=== PATIENT | female | born 1965 | race Hispanic/Latino ===

== ENCOUNTER 2016-08-07 11:24 | Day surgery (SDC) | payer OTHER ==
[~2016-08-07] VITALS: Ht 160 cm; Wt 101.0 kg
[~2016-08-07 11:24] MED LIST: ASPI1TAB22 PO; ATOR40TA69 PO; CHOL100045 PO; HYDR25TA4 PO; IMI25 PO; LOSA50TA37 PO; Lactated Ringer's 1,000 ML IV ONE; METF500T4 PO; Sodium Chloride LOK Flush 10 mL Syringe IV PRN; fentaNYL-PF 50 mCg/mL 2 mL Inj IVPUSH PRN
[2016-08-07 12:21] VITALS: BP 140/78; PULSE 69; RESP 14; O2SAT 100
[2016-08-07] MEDS ORDERED: ASPI-973 PO (12:28)
[2016-08-07] MEDS: 0.9% Sodium Chloride 1,000 ML IV SCH ×2 (13:22→13:31)
--- NOTE | 2016-08-07 13:34 | PCM.ENDCOL ---
Colonoscopy Date of Service: August 07, 2016 Physician Spenser Gandhi MD Pre Procedure Diagnosis: Screening Post Procedure Dx & Findings: Polyp hemorrhoids diverticuli Procedure Colonoscopy PROCEDURE IN DETAIL: Prep adequate Withdrawal time 9 minutes After unremarkable rectal examination the Olympus video colonoscope was inserted patient's anal canal and was advanced to cecum. Landmarks were identified including the ileocecal valve and appendiceal orifice. Scope was withdrawn systematically. Visualized colonic mucosa showed healthy shiny mucosa with normal healthy-appearing vasculature. In the rectosigmoid area, there were 2 polyps. One of them was 4 mm in size which was removed completely using cold snare. The other one was 1 mm in size which was removed completely using cold forceps. In the sigmoid colon and up to the descending colon there a few small diverticuli. In the rectum retroflexion was done which showed hemorrhoids. Anal canal was inspected carefully on the way out and hemorrhoids noted. Impression Polyps 2 status post complete removal Diverticula Hemorrhoids Recommendation Repeat colonoscopy in 5 years Diverticula diet Presedation Assessment Risks and Benefits Informed consent was obtained from the patient after all risks and benefits including but not limited to drug reaction, infection, pain, bleeding, perforation, as well as alternatives were discussed. Patient monitoring Continuous pulse oximetry, cardiac monitoring, blood pressure monitoring, IV access, and oxygen at 2L per nasal cannula. Periprocedural Fentanyl: Fentanyl 75mcg Incrementally Midazolam: Midazolam 3mg Incrementally Complications There were no periprocedural complications identified. Post Procedure Plan Post Procedure Recommendations 1. Restrict activities today. 2. Resume normal activities in the morning. 3. Resume medications. 4. Patient informed of normal post procedure side effects as bloating, drowsiness, blood streaking in the stool. 5. average risk CRCS. If colon polyps come back as: -Hyperplastic- can repeat colonoscopy in 10 years -Tubular adenoma- repeat colonoscopy in 5 years -Tubulovillous/villous adenoma- repeat colonoscopy in 3 years -If any dysplasia- return to clinic as soon as possible 6. Please don't hesitate to call me with any questions. Spenser Gandhi MD August 07, 2016 13:34
[2016-08-07 13:38] VITALS: BP 124/58; PULSE 68; RESP 14; O2SAT 100
[2016-08-07 13:51] VITALS: BP 119/59; PULSE 55; RESP 14; O2SAT 92
--- NOTE | 2016-08-10 17:56 | PATH ---
SURGICAL PATHOLOGY Attending Physician:Spenser Gandhi M.D. CASE STATUS: Signed Out PATIENT NAME: SHABNAM OROPEZA PID: [id number] : 1965 DATE COLLECTED:08/07/2016 00:00 SPECIMEN: Colon, Biopsy CLINICAL HISTORY: COLON POLYP 1. RECTAL SIGMOID COLON POLYP FINAL DIAGNOSIS: Rectosigmoid Colon, Polyp, Biopsy: Portion of tubular adenoma x1; negative for high-grade dysplasia. Portion of colorectal mucosa x1 with no significant histomorphologic abnormality. ICD 10: K63.5 GROSS DESCRIPTION: The specimen is received in one formalin filled container labeled with the patient's name, sublabeled "rectal-sigmoid colon polyp" and consists of 2 portions of tissue which aggregate to 1.1 x 0.4 x 0.4 CM. The specimen is entirely submitted in one cassette. 08/08/2016 [facility] ICD-9 CODES: CPT CODES: 1: 18000 Electronically Signed Out Eloise Xiong MD [facility] Pathology [facility] [address], [place] [address] Technical component performed at [facility], [facility] [address], [place], [address]
[2016-09-05] MEDS ORDERED: [UNRECOGNIZED DRUG - OTHER] TP (15:05)
[2016-09-05] MEDS ORDERED: ASPI-1148 PO (15:05)
[2016-09-05] MEDS ORDERED: AMIT10TA6 PO (15:05)
== END 2016-08-07 23:59 | disposition home or self-care (01) ==
LOC: END 11:24
PROVIDERS: ATTEND Internal Medicine
DX: Z12.11 Encounter for screening for malignant neoplasm of colon (principal); D12.7 Benign neoplasm of rectosigmoid junction; K57.30 Diverticulosis of large intestine without perforation or abscess without bleeding; K64.8 Other hemorrhoids; E11.9 Type 2 diabetes mellitus without complications; Z79.82 Long term (current) use of aspirin; Z79.899 Other long term (current) drug therapy

== ENCOUNTER 2016-09-06 10:34 | Day surgery (SDC) | payer OTHER ==
[2016-09-06] VITALS (10 sets, daily range): BP systolic 114–166; BP diastolic 58–94; PULSE 49–74; RESP 14–22; O2SAT 96–99
[~2016-09-06] VITALS: Ht 160 cm; Wt 99.3 kg
--- NOTE | 2016-09-06 07:56 | PCM.HPANE ---
Patient Data Surgeon Admitting Provider: Attending Provider:David Yates MD Primary Care Physician:Kassi Peguero MD Other Provider:Nikita Pepe Anesthesia Reason for Visit Left Buttock Lipoma Ht/WT & BMI Height (Feet): 5 Height (Inches): 3 Weight (Kilograms): 99.34 Body Mass Index 38.00 Allergies Coded Allergies: lisinopril (Verified Adverse Reaction, Severe, COUGH, 09/05/16) topiramate (Verified Adverse Reaction, Severe, PARESTHESIAS HANDS & FEET, 09/05/16) Past Anesthesia History Anesthesia History: Denies:: Abnormal Airway, Anesthesia Reactions, Difficult Intubation, Fam Anesthesia Reaction, Fam Malignant Hypertherm, Malignant Hyperthermia Diabetes History Hx Diabetes?: Yes Type of Diabetes: Type II Glycemic Control: Oral Medication Current Bedside Blood Glucose: 93 MRSA MRSA: No Medications Blood Thinner: Aspirin Hypertension Medication: Yes (HCTZ,LOSARTAN) Home Meds Incl Beta Ta: No Reported Medications [Gentamycin Eye Drops] No Conflict Check1-2 Gtts TP BID TO FINGERNAIL 09/05/16 Aspirin/Acetaminophen/Caffeine (Lwiowjr-Xsdqahezdxvom-Spsq Tab)250 Mg-250 Mg-65 Mg Tablet1 Each PO PRN 09/05/16 Amitriptyline 10 Mg Cphedi68 Mg PO HS Ref 0 09/05/16 Aspirin 81 Mg Jffbna49 Mg PO DAILY Ref 0 08/07/16 Cholecalciferol (Vitamin D3) (Vitamin D)1,000 Unit Capsule1,000 Unit PO DAILY # 1 BOTTLE Ref 0 08/06/16 Sumatriptan (Imitrex)25 Mg Oihiji31 Mg PO PRN 08/06/16 Metformin 500 Mg Adfjgg119 Mg PO BIDWM 30 Days Ref 0 08/04/14 Losartan Potassium 50 Mg Pnkvty28 Mg PO BID 08/04/14 Atorvastatin Calcium 40 Mg Cmzohz39 Mg PO DAILY #30 TABLET Ref 0 08/04/14 Hydrochlorothiazide 25 Mg Bxvxor87 Mg PO DAILY 30 Days Ref 0 08/04/14 Discontinued Reported Medications Aspirin/Acetaminophen/Caffeine (Excedrin Migraine Caplet)1 Each Tablet1 Each PO DIRECTED PRN For Headache 08/04/14 History History of ENT Problems?: No HEENT History: Denies:: Abnormal Airway Difficult Intubation Dysphagia Hearing Problem Denture Type: None Teeth Condition: Within Normal Limits Hx of Heart Problems?: Yes Cardiovascular History: Positive for:: Chest Pain (2011,2002 ??ETIOLOGY 2012 MPS WNL) Hypertension (HYPERLIPIDEMIA) Denies:: AICD Atrial Fibrillation Congestive Heart Failure Heart Murmur Pacemaker Valvular Heart Disease Hx of Respiratory Problem?: No Respiratory History: Denies:: Tuberculosis Use of C-PAP Machine Hx Neurologic Problems?: Yes Neurological History: Positive for:: Headaches Denies:: CVA Dementia Hx of GI Problems?: Yes Hx of Problems?: Yes Genitourinary History: Positive for:: Kidney Stones (HX OF KIDNEY STONES) Denies:: Urinary Tract Infection (C/OF INTERMITTANT DYSURIA) Female Hx: Positive for:: Problems with Breasts? (S/P RT PARTIAL MASTECTOMY ( CYST)) Denies:: Currently (S/P C/S X2) Skin History: Denies:: History Skin Disorders? Pressure Ulcers Hx Musculoskeletal Problems?: Yes Musculoskeletal History: Positive for:: Musculoskeletal Trauma (S/P ORIF LT WRIST HX FX FINGER) Denies:: Joint Replacement Psycho Social History: Positive for:: Anxiety (SITUATIONAL) Denies:: Hx Depression Hx Surgeries?: Yes (2 C-sections, lumpectomy of R breast, ORIF L wrist) Hx Any Other Health Problems?: Yes Other History: Denies:: Cancer Endocrine Disease Hospitalization Thyroid Disease Hx Diabetes: Yes Hx Alcohol Use: NoHx Substance Use: No Smoking Status: Never Smoker Have You Smoked inLast 12 mo: No Stop/Bang S-Snoring: Do You Snore Loudly: No T-Tired: feel tired, fatigued: No O-Obsered: Observed not breath: No P-Blood Pressure: treated: Yes B- Body Mass Index > 35 kg/m2: Yes A- Age over 50: Yes N- Neck Large Circumference: No G- Gender Male: Yes MAHNAZ Total Score: 4 MAHNAZ Risk Assessment: High Risk, =/>3 Yes MAHNAZ Category 4 OutPt Procedure: Yes Risk Assessment Category Category 1A: Patient has history of documented sleep apnea, and HAS NOT received any narcotic, sedative or anesthesia administration during this stay. Category 1B: Patient has history of documented sleep apnea, and HAS received any narcotic , sedative or anesthesia administration during this stay Category 2: Patient has SUSPECTED Obstructive Sleep Apnea, and HAS received any narcotic , sedative or anesthesia administration during this stay. Category 3: Patient has SUSPECTED Obstructive Sleep Apnea and HAS NOT received narcotic, sedative or anesthesia administration during this stay. Category 4: Outpatient in Procedural Areas with known sleep apnea or who screen positive for High Risk via the STOP/BANG questionnaire. Exam Exam General Appearance: Alert, Oriented X3, Cooperative, No Acute Distress HEENT/AIRWAY: MP 2 Lungs: Clear to Auscultation, Normal Air Movement Heart: Exam Unremarkable, Regular Rate/Rhythm, No Murmurs/Rubs/Gallops Plan Impression Patient chart reviewed, patient interviewed and anesthestic plan with risks, benefits, and alternatives discussed, and informed consent obtained. ASA Physical Status: ASA3 Severe Disease (morbid obesity) Anesthetic Plan: MAC Bene/Risks/Altern/Consents: Yes HP Complete Prior to Induction: Yes Jose Marr MD Sep 06, 2016 07:56
[~2016-09-06 10:34] MED LIST changes: +AMIT10TA6 PO; +ASPI-1148 PO; +ASPI-973 PO; -ASPI1TAB22 PO; +CeFAZolin Inj 2,000 MG in Dextrose 5%-Pha MIX 50 ML IV SCH; -Lactated Ringer's 1,000 ML IV ONE; +Lactated Ringer's 1,000 ML IV SCH; -Sodium Chloride LOK Flush 10 mL Syringe IV PRN; +[UNRECOGNIZED DRUG - OTHER] TP; -fentaNYL-PF 50 mCg/mL 2 mL Inj IVPUSH PRN
[2016-09-06] MEDS ORDERED: Dexamethasone 4 mg/mL Inj ONE (10:35)
[2016-09-06] MEDS ORDERED: fentaNYL-PF 50 mCg/mL 2 mL Inj ONE (10:35)
[2016-09-06] MEDS ORDERED: Ketamine 10 mg/mL 20 mL Inj ONE (10:35)
[2016-09-06] MEDS ORDERED: Ondansetron 2 mg/mL 2 mL Inj ONE ×2 (10:35→14:25)
[2016-09-06] MEDS ORDERED: Propofol 10,000 mCg/mL 20 mL Inj ONE (10:35)
[2016-09-06] MEDS ORDERED: Lactated Ringer's 1,000 ML IV ONE (11:34)
[2016-09-06] MEDS ORDERED: Bupivacaine-MPF 0.25% 30 mL Inj INFILTRATE ONE (13:43)
[2016-09-06] MEDS ORDERED: MetoCLOpramide 5 mg/mL 2 mL Inj ONE (14:25)
[2016-09-06] MEDS ORDERED: Lactated Ringer's 500 ML IV PRN (14:32)
[2016-09-06] MEDS ORDERED: Lactated Ringer's 1,000 ML IV SCH (14:32)
[2016-09-06] MEDS ORDERED: HYDROcodone-APAP 5-325 mg Tablet PO PRN (14:35)
[2016-09-06] MEDS ORDERED: Dexamethasone 4 mg/mL Inj IVPUSH PRN (14:35)
[2016-09-06] MEDS ORDERED: MetoCLOpramide 5 mg/mL 2 mL Inj IVPUSH PRN (14:35)
[2016-09-06] MEDS ORDERED: EPHEDrine Sulfate 50 mg/mL Inj IVPUSH PRN (14:35)
[2016-09-06] MEDS ORDERED: Phenylephrine 10,000 mCg/mL Inj IVPUSH PRN (14:35)
[2016-09-06] MEDS ORDERED: Ondansetron 2 mg/mL 2 mL Inj IVPUSH PRN (14:35)
[2016-09-06] MEDS ORDERED: HYDROmorphone 1 mg/mL Inj IVPUSH PRN (14:35)
[2016-09-06] MEDS ORDERED: fentaNYL-PF 50 mCg/mL 2 mL Inj IVPUSH PRN (14:35)
--- NOTE | 2016-09-06 15:13 | PCM.ANEP1 ---
Post Anesthesia PACU Phase 1 Assessment Vital Signs Vital Signs Date Time Temp Pulse Resp B/P Pulse Ox O2 Delivery O2 Flow Rate FiO2 09/06/16 15:08 52 18 127/62 96 Room Air 09/06/16 15:00 36.6 52 19 127/67 97 Room Air 09/06/16 14:45 36.1 60 17 117/94 98 Room Air 09/06/16 14:40 52 22 136/58 99 Simple Mask 8 09/06/16 14:35 49 22 139/70 99 Simple Mask 8 09/06/16 14:30 54 22 157/71 99 Simple Mask 8 09/06/16 14:27 36.3 166/77 09/06/16 11:30 36.6 74 14 140/84 97 Room Air Anesthetic Administered: GA Level of Alertness: Sleepy, easy to arouse TOBIAS's with Equal Strength: Yes Pain: No Nausea or Vomiting: No CV Function & Hydration Stable: Yes Airway Device: Oralpharangeal Airway Oxygen Delivery: Simple Mask Lungs: Clear to Auscultation, Normal Air Movement Dermatome Level: Full Sensation PACU Phase 2 Assessment Complications: No Follow up Care: No Patient Instructions Provided: N/A Jose Marr MD Sep 06, 2016 15:13
--- NOTE | 2016-09-07 01:52 | OP ---
[address] [address] OPERATIVE REPORT PATIENT: SHABNAM OROPEZA : 1965 MR#: [id number] ADMIT: 09/06/2016 JOB ID: [id number] DATE OF SURGERY: 09/06/2016 ANESTHESIA: General. PREOPERATIVE DIAGNOSIS(ES): Symptomatic left buttock mass. POSTOPERATIVE DIAGNOSIS(ES): Left buttock lipoma. OPERATION: Excision of left buttock lipoma, measuring approximately 8 x 20 x 5 cm. SURGEON: David Yates MD CASINO CONTROLLER: Blade Allen PA-C. The machine assistant was required for the safety and timely completion of the case. COMPLICATIONS: None. ESTIMATED BLOOD LOSS: 10 mL. CONDITION: Satisfactory. SPECIMEN: Left buttock lipoma. FINDINGS: There was a large lipoma that was very lobulated and kind of interdigitating into the surrounding fatty tissue. At times, the plane between the lipoma and the buttock fat was quite indistinct. INDICATIONS/SIGNIFICANT HISTORY: The patient is a 50-year-old female who, two months ago, noted a lump in her left buttock. She believes it had grown in size. She brought this to the attention of her PCP, who referred her to me. It was an obvious lipoma. She wanted it removed. Given her size, I elected to do this in the operating room. OPERATIVE TECHNIQUE: The patient was taken to the operating room and placed in the supine position. General anesthesia was administered. She was then placed in the prone position. The buttocks were prepped and draped in the standard surgical fashion. A procedural pause was performed. Preoperative antibiotics were given. A transverse incision was made on the left buttock over the lipomatous mass and dissection carried down through the skin. The lipoma was adhesive to the undersurface of the skin. It was very lobulated. I used electrocautery to dissect this off the skin. The surrounding planes were quite indistinct and I used electrocautery to kind of free it up. Eventually, this was completely excised. There was a large defect. Therefore, I placed a 10-Thai ROGE drain, bringing it out laterally. The skin was closed with 2-0 Vicryl deep dermis, followed by running 4-0 Monocryl. Dermabond was applied. The entire procedure was well tolerated without complication.
--- NOTE | 2016-09-10 14:37 | PATH ---
SURGICAL PATHOLOGY Attending Physician:David Yates MD CASE STATUS: Signed Out PATIENT NAME: SHABNAM OROPEZA PID: [id number] : 1965 DATE COLLECTED:09/06/2016 00:00 SPECIMEN: Soft Tissue, Lipoma CLINICAL HISTORY: LEFT BUTTOCK MASS 1). LEFT BUTTOCK LIPOMA FINAL DIAGNOSIS: 1.LEFT BUTTOCK MASS: LIPOMA. ICD10 D17.1 GROSS DESCRIPTION: The specimen is received in one formalin filled container labeled with the patient's name, sublabeled "left buttock lipoma" and consists of multiple portions of light yellow rogers soft tissue which aggregate to 13.0 x 10.0 x 5.0 CM. The specimen is inked blue. 2 business services representative sections are submitted in 2 cassettes. 09/07/2016 [facility] MICRO DESCRIPTION: See diagnosis. ICD-9 CODES: CPT CODES: 1: 98858 Electronically Signed Out Luisana Doll MD [facility] Pathology [facility] [address], [place] [address] Technical component performed at [facility], [facility] [address], [place], [address]
== END 2016-09-06 23:59 | disposition home or self-care (01) ==
LOC: SAS 10:34
PROVIDERS: ATTEND General Practice
DX: D17.1 Benign lipomatous neoplasm of skin and subcutaneous tissue of trunk (principal); I10 Essential (primary) hypertension; E78.00 Pure hypercholesterolemia, unspecified; E11.9 Type 2 diabetes mellitus without complications; E78.5 Hyperlipidemia, unspecified; F41.9 Anxiety disorder, unspecified; Z79.82 Long term (current) use of aspirin; Z79.84 Long term (current) use of oral hypoglycemic drugs
CPT/HCPCS: 11406; J0690; J1100; J2405; J2765; J3010; J7120